=== PATIENT | female | born 1985 | race Caucasian/White ===

== ENCOUNTER 2016-07-30 20:01 | Emergency (ER) | payer OTHER ==
--- NOTE | 2016-07-30 20:48 | ED ---
General Adult HPI <Toby Mijares - Last Filed: 07/30/16 22:13> - General Source: patient, RN notes reviewed Mode of arrival: ambulatory Limitations: no limitations <Charisse Ceja - Last Filed: 07/30/16 22:16> - General Chief complaint: ENT Stated complaint: Ear Ache Time Seen by Provider: 07/30/16 20:22 - History of Present Illness Initial comments: This is a 31-year-old female presents with right ear pain started yesterday but worse this morning. Patient states she history of decreased hearing to this right ear 2 weeks ago but these symptoms have resolved. Patient also complains of a sore throat. Patient denies any drainage from the ear. The cough, congestion, fever/chills or photophobia. Patient denies any sick contacts. Patient denies any recent fever, chills, shortness breath, chest pain, abdominal pain, nausea/vomiting/diarrhea, back pain, numbness, tingling, hematuria, headache, or visual changes, or any other complaints. (Charisse Ceja) - Related Data Previous Rx's Medication Instructions Recorded Ciprofloxacin HCl [Cipro] 500 mg PO Q12HR #56 tablet 02/15/14 Cyclobenzaprine [Flexeril] 5 mg PO TID #10 tablet 02/15/14 Ibuprofen [Motrin] 800 mg PO Q6HR PRN #20 tab 02/15/14 Allergies Allergy/AdvReac Type Severity Reaction Status Date / Time No Known Allergies Allergy Verified 07/30/16 20:18 Review of Systems ROS Other: All systems not noted in ROS Statement are negative. <Toby Mijares - Last Filed: 07/30/16 22:13> ROS Other: All systems not noted in ROS Statement are negative. <Charisse Ceja - Last Filed: 07/30/16 22:16> ROS Statement: Those systems with pertinent positive or pertinent negative responses have been documented in the HPI. Past Medical History Past Medical History: Asthma Additional Past Medical History / Comment(s): 1 functioning kidney, recurrent pyelonephritis, recurrent nephrolithiasis History of Any Multi-Drug Resistant Organisms: None Reported Past Surgical History: Section Additional Past Surgical History / Comment(s): d and c Past Anesthesia/Blood Transfusion Reactions: No Reported Reaction Past Psychological History: No Psychological Hx Reported Smoking Status: Current every day smoker Past Alcohol Use History: Occasional Past Drug Use History: None Reported <Charisse Ceja - Last Filed: 07/30/16 22:16> General Exam <Toby Mijares - Last Filed: 07/30/16 22:13> Limitations: no limitations <Charisse Ceja - Last Filed: 07/30/16 22:16> - General Exam Comments Initial Comments: General: The patient is awake and alert, in no distress, and does not appear acutely ill. Eye: Pupils are equal, round and reactive to light, extra-ocular movements are intact. No nystagmus. There is normal conjunctiva bilaterally. No signs of icterus. Ears: Right ear: With cerumen impaction. After ear irrigation TM is pink and pearly with intact cone of light. Left ear: TM pink and pearly with intact cone of light bilaterally. Normal external ear canals. Nose: Nasal turbinates pink and moist Mouth and throat: Mild erythema in the posterior pharynx. There are moist mucous membranes and no oral lesions. Neck: The neck is supple, there is no tenderness or JVD. Cardiovascular: There is a regular rate and rhythm. No murmur, rub or gallop is appreciated. Respiratory: Lungs are clear to auscultation, respirations are non-labored, breath sounds are equal. No wheezes, stridor, rales, or rhonchi. Musculoskeletal: Normal ROM, no tenderness. Strength 5/5. Sensation intact. Radial pulses equal bilaterally 2+. Neurological: A&O x 3. CN II-XII intact, There are no obvious motor or sensory deficits. Coordination appears grossly intact. Speech is normal. Skin: Skin is warm and dry and no rashes or lesions are noted. Psychiatric: Cooperative, appropriate mood & affect, normal judgment. (Charisse Ceja) Procedures <Toby Mijares - Last Filed: 07/30/16 22:13> <Charisse Ceja - Last Filed: 07/30/16 22:16> - Procedures Initial comment: Procedure ;;Right ear irrigation with warm water. Large ceruminous plug removed. Tympanic membrane appears to be normal. No signs of infection. No evidence of external otitis or otitis media. Dr. Mijares (Toby Mijares) Medical Decision Making <Toby Mijares - Last Filed: 07/30/16 22:13> <Charisse Ceja - Last Filed: 07/30/16 22:16> - Medical Decision Making This is a 31-year-old female who presents with right ear pain that started yesterday. On physical exam Ears: Right ear: With cerumen impaction. After ear irrigation TM is pink and pearly with intact cone of light. Left ear: TM pink and pearly with intact cone of light bilaterally. Normal external ear canals. A rapid strep was done and was negative. I discussed that the cerumen impaction was probably the cause of the patient's pain. Patient does not need antibiotics at this time. I discussed return parameters. Discussed that patient should follow up with PCP in one to 2 days or return to the [facility] for any worsening symptoms or for any further concerns. Patient was receptive to this plan and patient will be discharged home. I discussed this case with attending physician Dr. Mijares who agrees the plan as stated above. (Charisse Ceja) - Lab Data Lab Results 07/30/16 Range/Units 20:47 Group A Strep Rapid Negative (Negative) Disposition <Toby Mijares - Last Filed: 07/30/16 22:13> Time of Disposition: 22:11 <Charisse Ceja - Last Filed: 07/30/16 22:16> Clinical Impression: Cerumen impaction Disposition: HOME SELF-CARE Condition: Good Instructions: Cerumen Impaction (ED) Additional Instructions: Please follow-up with family doctor in the next 2 days of symptoms have not improved. Please return to emergency room if the symptoms increase or worsen or for any other concerns. Referrals: So Art MD [Primary Care Provider] - 1-2 days
[2016-07-30 20:49] VITALS: RESP 18
[2016-07-30 22:19] VITALS: BP 120/59; PULSE 81; TEMP 98.8
== END 2016-07-30 22:19 | disposition home or self-care (01) ==
LOC: EC 20:01
DX: H61.21 Impacted cerumen, right ear (principal); F17.200 Nicotine dependence, unspecified, uncomplicated; Z79.2 Long term (current) use of antibiotics; Z79.899 Other long term (current) drug therapy; Z87.440 Personal history of urinary (tract) infections
CPT/HCPCS: 69209; 87081; 87430; 99283